=== PATIENT | female | born 1980 | race Caucasian/White ===

== ENCOUNTER 2016-12-22 12:04 | Outpatient (CLI) | payer BC, OTHER | END 2016-12-22 12:05 | disposition home or self-care (01) | DX: Z36 Encounter for antenatal screening of mother (principal) ==

== ENCOUNTER 2016-12-29 15:07 | Outpatient (CLI) | payer OTHER | END 2016-12-29 15:08 | disposition home or self-care (01) | DX: Z36 Encounter for antenatal screening of mother (principal) ==

== ENCOUNTER 2017-02-16 07:25 | Outpatient (CLI) | payer OTHER ==
--- NOTE | 2017-02-16 12:14 | Ultrasound Report ---
DETAILED ANATOMICAL EVALUATION: 02/16/2017 TECHNIQUE: Real-time scanning was performed with healthcare representative static images obtained. LAST MENSTRUAL PERIOD 09/28/2016 Clinical Age 20 weeks 1 day US Age 20 weeks 3 days EFW Hadlock 370 g EFW% Hadlock --- Heart Rate 135 bpm EDC 07/05/2017 US EDC 07/03/2017 BPD [place] 20 weeks 0 days; Mean mm 46.2 HC [place] 20 weeks 1 day; Mean mm 177.1 AC [place] 21 weeks 3 days; Mean mm 163.4 FL [place]lock 20 weeks 0 days; Mean mm 32.1 Presentation variable Placental Location posterior Cervical Length 5.7 cm Amniotic Fluid 13.8 cm FINDINGS: Single fetus is noted in variable positions within the uterus. Composite gestational age today by ultrasound is 20 weeks 3 days. EDC by ultrasound is 07/03/2017. This is 2 days more advanced than expected as calculated for patient's LMP. This degree of growth is within normal limits. weight at the present time is 370 grams. The head circumference to abdominal circumference ratio is slightly less than normal at 1.08. Suggest a followup ultrasound in 8 weeks to evaluate growth. heart rate is 135 beats per minute. anatomy shows normal head, body, spine, four-chamber view of the heart, cardiac outflow tract, umbilical cord insertion site in the fetus, and bladder. kidneys are seen. Examination is negative for hydronephrosis. Normal three-vessel umbilical cord is noted. Placenta appears normal. Umbilical cord insertion site in the placenta is within the bulk of the placenta and only mildly eccentrically located. Examination is negative for placenta previa. Umbilical cord insertion site within the placenta is within the bulk of the placenta. It is slightly eccentrically located within the placenta but within normal limits in regard to its position. Maternal cervix measures 5.7 cm. IMPRESSION: 1. SINGLE FETUS IS NOTED IN VARIABLE POSITIONS WITHIN THE UTERUS. COMPOSITE GESTATIONAL AGE BY ULTRASOUND TODAY IS 20 WEEKS 3 DAYS. EDC BY ULTRASOUND IS 07/03/2017. PRESENT GESTATIONAL AGE IS ONLY 2 DAYS MORE ADVANCED THAN EXPECTED CALCULATED FROM PATIENT'S LMP. 2. HEAD CIRCUMFERENCE/ABDOMINAL CIRCUMFERENCE RATIO IS SLIGHTLY LESS THAN NORMAL. RECOMMEND A FOLLOWUP ULTRASOUND IN 8 WEEKS FOR FURTHER EVALUATION OF GROWTH. 3. POSTERIOR PLACENTA. 4. NORMAL AMOUNT OF AMNIOTIC FLUID WITH AMNIOTIC FLUID VOLUME INDEX OF 13.8. MTDD
== END 2017-02-16 07:26 | disposition home or self-care (01) ==
LOC: DI 07:25
PROVIDERS: ATTEND Nurse Practitioner Obstetrics & Gynecology
DX: Z36 Encounter for antenatal screening of mother (principal)
CPT/HCPCS: 76811

== ENCOUNTER 2017-04-04 13:48 | Outpatient (CLI) | payer OTHER ==
--- NOTE | 2017-04-05 09:10 | Ultrasound Report ---
OB FOLLOWUP: 04/04/2017 CLINICAL INDICATION: Check growth, slight variation in HC/AC on previous examination. TECHNIQUE: Real-time scanning was performed with roofing sales representative static images obtained. LAST MENSTRUAL PERIOD 09/28/2016 Clinical Age 26 weeks 6 days US Age 28 weeks 4 days EFW Hadlock 1212 g EFW% Hadlock 73% Heart Rate 135 bpm EDC 07/05/2017 US EDC 06/23/2017 BPD [place] 29 weeks 0 days; Mean mm 72.2 HC [place] 29 weeks 0 days; Mean mm 165.9 AC [place] 28 weeks 5 days; Mean mm 245.3 FL [place] 27 weeks 3 days; Mean mm 51.1 Presentation cephalic Placental Location posterior Cervical Length 5.0 cm Amniotic Fluid 22.9 cm FINDINGS: There is a single viable intrauterine gestation, in cephalic presentation. heart rate is 135 BPM. The placenta is posterior, without evidence of previa. Amniotic fluid volume is at the upper limits of normal, measuring 22.9 (95th percentile for gestational age). By size, the fetus now measures 28.6 weeks (27.1 weeks by previous sonogram). HC/AC ratio is now within normal limits. No free fluid or adnexal lesion is appreciated. IMPRESSION: SINGLE VIABLE INTRAUTERINE GESTATION, WITH EXPECTED GROWTH FROM PREVIOUS SONOGRAM. NORMAL HC/AC RATIO. BORDERLINE POLYHYDRAMNIOS. MTDD
== END 2017-04-04 13:49 | disposition home or self-care (01) ==
LOC: DI 13:48
PROVIDERS: ATTEND Nurse Practitioner Obstetrics & Gynecology
DX: Z36 Encounter for antenatal screening of mother (principal)
CPT/HCPCS: 76816

== ENCOUNTER 2017-04-11 14:56 | Outpatient (CLI) | payer OTHER ==
[2017-04-11 18:51] LABS: HCT - HEMATOCRIT 34.8 % (37.0-47.0); HGB - HEMOGLOBIN 11.7 g/dL (12.0-16.0); MEAN CORPUSCULAR HGB CONC 33.5 g/dL (32.0-36.0); MEAN CORPUSCULAR VOLUME 92.4 fL (81.0-99.0); MEAN PLATELET VOLUME 8.9 fL (7.9-10.8); RED BLOOD COUNT 3.77 10^6/uL (4.20-5.40); RED CELL DISTRIBUTION WIDTH 13.2 % (12.0-15.0); WHITE BLOOD COUNT 16.2 x10^3/uL (4.8-10.8)
== END 2017-04-11 14:57 | disposition home or self-care (01) ==
LOC: LAB.F 14:56
PROVIDERS: ATTEND Nurse Practitioner Obstetrics & Gynecology
DX: Z36 Encounter for antenatal screening of mother (principal)
CPT/HCPCS: 82950; 85025; 86850

== ENCOUNTER 2017-06-08 08:00 | Outpatient (CLI) | payer OTHER | END 2017-06-08 08:01 | disposition home or self-care (01) | LOC: LAB.R 08:00 | PROVIDERS: ATTEND Registered Nurse | DX: Z34.83 Encounter for supervision of other normal pregnancy, third trimester (principal) | CPT/HCPCS: 87081 ==

== ENCOUNTER 2017-07-05 16:59 | Inpatient (IN) | payer OTHER ==
[~2017-07-05 16:59] MED LIST: LABETALOL 20 MG/4 ML SYRINGE IVP ONE; MAGNESIUM SULFATE 2 GM in SODIUM CHLORIDE 0.9% 50 ML IV ONE
[2017-07-05] MEDS ORDERED: MAGNESIUM SULFATE 2 GRAM 2 GM/50 ML BAG IV SCH (17:00)
--- NOTE | 2017-07-05 17:09 | HISTORY & PHYSICAL EXAMINATION ---
Admit History - Instructions [place]/Slash: -Left hand click circles element as positive or present. -Right hand click slashes element as negative or not present. - Visit Reason Visit Reason: Other (Severe hypertension @ 4days ) - : 1 Parity: 1 Premature: 0 Ectopic: 0 : 0 Care: positive: [facility] Risk/History: positive: induced HTN Complications This : positive: induced HTN, Other ( w/ 2nd degree perineal laceration s/p IOL for gHTN) Smoking Status: Never smoker - Mother's Labs Mother's Blood Type: positive: O Mother's RH: positive: Positive GBS: positive: Group B Step Negative Rubella Status: positive: Immune - Other Maternal History Other Maternal History: Flores Nicole is a 37 y/o who underwent IOL for new onset gHTN @ 39w1d. She underwent effective pharmaceutical cervical ripening w/ misoprostol , then received Pitocin infusion to maximum infusion of 9mU/min, then underwent AROM & subsequently delivered vaginally w/o complication. , she was mostly normotensive w/ occasional labile BPs 140s/80s but no severe-range blood pressures & no neurologic s/sx. She did not have proteinuria during her hospital stay. She was seen today in clinic for disorder & was found to have persistent severe-range BPs. She denied RAMON/vision changes/RUQ/ epigastric/shoulder pain. Her edema had progressed to +3. Her DTRs were brisk +3 w/o clonus. Meds/Allgy - Home Medications Home Medications: Ambulatory Orders Medication Instructions Recorded Confirmed Pnv No.122/Iron/Folic Acid 1 tab PO DAILY 06/29/17 06/29/17 [ Multi Tablet] - Allergies Allergies/Adverse Reactions: Allergies Allergy/AdvReac Type Severity Reaction Status Date / Time No Known Drug Allergies Allergy Verified 06/29/17 13:44 Physical - Other Notes Labor Progress Note/Additional Text: ROS: GEN: No fever, some fatigue secondary to sleep disruption HEENT: No RAMON, no visual disturbances CHEST: No CP, no SOB ABD: No N/V/D, occasional "twinges" of pain : + minimal lochia rubra, + tenderness @ perineal laceration MS: FROM t/o, some tenderness in thighs secondary to exertion during delivery, No calf tenderness, notable edema NEURO: No numbness/tingling/weakness SKIN: No pruritus, no lesion PSYCH: Some anxiety & stress secondary to difficulties w/ BREAST: + severe nipple pain w/ latch & t/o nursing, + shooting, sharp pains intermittently in b/l breasts PE: GEN: AAOx3, NAD [place] female HEENT: Grossly normocephalic, atraumatic CHEST: Lungs b/l CTA t/o, RRR nls1s2, no murmur ABD: S, NT, Fundus firm @ 4 fingerbreadths below U : Deferred MS: FROM t/o, no erythema, +3 pitting edema to the knee b/l NEURO: +3 b/l LE DTRs, no clonus SKIN: No lesion, C/D/I, warm PSYCH: Mild anxiety, no depressive symptoms BREAST: BL full, NT, nipples b/l intact & everted, erythematous Plan for Labor - Plan For Labor Plan for Labor: Assessment: pre-eclampsia by BP criteria Nipple infection consistent w/ mammary candidiasis Plan: 1. Reviewed implications of today's clinical findings & risks r/t untreated BP, including maternal stroke/PE/seizure 2. Readmit pt to hospital for seizure prophylaxis w/ Magnesium Sulfate: 4g bolus followed by 2g/hr infusion 3. PET labs 4. 2L fluid restriction, strict I & O 5. 20mg labetalol IVP for BP management, progressive dosing if persistent severe -range BPs 6. Fluconazole 400mg po x1, then 200mg daily thereafter x13 days 7. Extensive support provided 8. Reviewed plan of care w/ pt & partner, consulted Dr. Feliciano DO, who concurs with assessment & plan, Dr. Elvia MD, notified regarding patient status & plan of care 9. Ongoing careful blood pressure monitoring
[2017-07-05 17:22] LABS: BASOPHILS # (AUTO) 0.1 10^3/uL (0.0-0.1); BASOPHILS % (AUTO) 0.4 %; EOSINOPHILS # (AUTO) 0.3 10^3/uL (0.0-0.7); HCT - HEMATOCRIT 39.9 % (37.0-47.0); HGB - HEMOGLOBIN 13.1 g/dL (12.0-16.0); LYMPHOCYTES # (AUTO) 1.9 10^3/uL (1.5-3.5); LYMPHOCYTES % (AUTO) 12.3 %; MEAN CORPUSCULAR HEMOGLOBIN 29.9 pg (27.0-31.0); MEAN CORPUSCULAR HGB CONC 32.7 g/dL (32.0-36.0); MEAN CORPUSCULAR VOLUME 91.4 fL (81.0-99.0); MEAN PLATELET VOLUME 8.6 fL (7.9-10.8); MONOCYTES % (AUTO) 6.6 %; NEUTROPHILS # (AUTO) 12.4 10^3/uL (1.5-6.6); NEUTROPHILS % (AUTO) 78.7 %; RED BLOOD COUNT 4.36 10^6/uL (4.20-5.40); RED CELL DISTRIBUTION WIDTH 14.3 % (12.0-15.0); UNCORRECTED WHITE BLOOD COUNT 15.8 x10^3/uL; WHITE BLOOD COUNT 15.8 x10^3/uL (4.8-10.8)
[2017-07-05] MEDS ORDERED: CALCIUM GLUCONATE 1,000 MG in SODIUM CHLORIDE 0.9% 50 ML IV SCH (17:30)
[2017-07-05 17:34] LABS: URIC ACID 4.3 mg/dL (2.6-7.2)
[2017-07-05] MEDS ORDERED: FLUCONAZOLE 100 MG TABLET PO ONE (18:00)
[2017-07-05] MEDS ORDERED: LACTATED RINGERS 1,000 ML IV SCH (18:00)
[2017-07-05] MEDS ORDERED: SODIUM CHLORIDE FLUSH 0.9% 10 ML SYRINGE IVP ONE (18:29)
[2017-07-05] MEDS: METOPROLOL TARTRATE 25 MG TABLET PO SCH (20:31)
[2017-07-05] MEDS: MAGNESIUM SULFATE 2 GRAM 2 GM/50 ML BAG IV SCH ×2 (22:41→22:43)
[2017-07-05] MEDS: MAGNESIUM SULFATE 40 GM in LACTATED RINGERS 420 ML IV SCH (22:42)
--- NOTE | 2017-07-06 08:22 | PROVIDER PROGRESS NOTE ---
Subjective - Prog Note Date Prog Note Date: 07/06/17 Prog Note Time: 08:20 - Subjective Pt reports feeling: Improved Subjective: Patient sitting in bed, breast feeding baby. sitting at bedside. Pain controlled, not requiring medications. Denies visual changes, headaches, RUQ pain. Objective - Vital Signs/Intake & Output Reviewed Vital Signs: Yes Vital Signs: Vital Signs x48h Temp Pulse Resp BP 07/06/17 07:42 98.4 F 76 12 134/76 H 07/06/17 03:58 77 18 133/72 H 07/06/17 02:11 72 18 137/86 H Intake & Output: Intake & Output 07/03/17 07/04/17 07/05/17 07/06/17 23:59 23:59 23:59 23:59 Intake Total 880 Balance 880 - Objective General Appearance: positive: No acute distress Eyes Bilateral: positive: Normal inspection Abdomen: positive: Non-tender (Firm fundus) Neurologic/Psychiatric: positive: Oriented x3 Reflexes: Knee (R): 2+, Knee (L): 1+ - Lab Results Fish Bones: 07/05/17 17:15 Other Labs: Lab Results x24hrs 07/05/17 07/05/17 07/05/17 Range/Units 17:15 17:15 17:15 WBC 15.8 H (4.8-10.8) x10^3/uL RBC 4.36 (4.20-5.40) 10^6/uL Hgb 13.1 (12.0-16.0) g/dL Hct 39.9 (37.0-47.0) % MCV 91.4 (81.0-99.0) fL MCH 29.9 (27.0-31.0) pg MCHC 32.7 (32.0-36.0) g/dL RDW 14.3 (12.0-15.0) % Plt Count 277 (130-450) 10^3/uL MPV 8.6 (7.9-10.8) fL Neut # 12.4 H (1.5-6.6) 10^3/uL Lymph # 1.9 (1.5-3.5) 10^3/uL [place] # 1.0 (0.0-1.0) 10^3/uL Eos # 0.3 (0.0-0.7) 10^3/uL Baso # 0.1 (0.0-0.1) 10^3/uL Absolute Nucleated RBC 0.01 x10^3/uL Nucleated RBC % 0.0 /100WBC Uric Acid 4.3 (2.6-7.2) mg/dL AST 101 H (10-42) IU/L Lactate Dehydrogenase 251 H (91-225) IU/L Urine Creatinine mg/dL Ur Total Protein Timed mg/dL Protein/Creatinin Ratio (<=0.2) 07/05/17 Range/Units 17:10 WBC (4.8-10.8) x10^3/uL RBC (4.20-5.40) 10^6/uL Hgb (12.0-16.0) g/dL Hct (37.0-47.0) % MCV (81.0-99.0) fL MCH (27.0-31.0) pg MCHC (32.0-36.0) g/dL RDW (12.0-15.0) % Plt Count (130-450) 10^3/uL MPV (7.9-10.8) fL Neut # (1.5-6.6) 10^3/uL Lymph # (1.5-3.5) 10^3/uL [place] # (0.0-1.0) 10^3/uL Eos # (0.0-0.7) 10^3/uL Baso # (0.0-0.1) 10^3/uL Absolute Nucleated RBC x10^3/uL Nucleated RBC % /100WBC Uric Acid (2.6-7.2) mg/dL AST (10-42) IU/L Lactate Dehydrogenase (91-225) IU/L Urine Creatinine 99.0 mg/dL Ur Total Protein Timed 24 mg/dL Protein/Creatinin Ratio 0.2 (<=0.2) Assessment/Plan - Problem List (1) HELLP syndrome, complicating the puerperium Impression: 37 yo S/p 07/01/2017 at 39w3d. Induced for gestational HTN. PPD #5. HELLP due to elevated liver enzymes. Improved control of BP on routine metoprolol with PRN labetalol. D/w the patient the significance of HELLP. Though cure is delivery, still potential for seizures. Will place the patient on magnesium sulfate for 24 hours given severe pre-eclampsia. Patient and understood risks, benefits and expectations of MgSO4. Agrees to the plan. Will start MgSO4 for 24 hours with fluid restriction. Repeat labs today and tomorrow.
[2017-07-06] MEDS ORDERED: MAGNESIUM SULFATE 2 GRAM 4 GM/100 ML BAG IV ONE (08:32)
[2017-07-06] MEDS ORDERED: DOCUSATE SODIUM 250 MG CAPSULE PO SCH (09:00)
[2017-07-06] MEDS: MAGNESIUM SULFATE 40 GM in LACTATED RINGERS 420 ML IV SCH (09:34)
[2017-07-06] MEDS: LACTATED RINGERS 1,000 ML IV SCH (09:35)
[2017-07-06 09:37] LABS: BILIRUBIN,URINE NEGATIVE (NEGATIVE)
[2017-07-06 09:40] LABS: BASOPHILS # (AUTO) 0.1 10^3/uL (0.0-0.1); BASOPHILS % (AUTO) 0.4 %; EOSINOPHILS # (AUTO) 0.3 10^3/uL (0.0-0.7); HCT - HEMATOCRIT 37.8 % (37.0-47.0); HGB - HEMOGLOBIN 12.5 g/dL (12.0-16.0); LYMPHOCYTES # (AUTO) 1.5 10^3/uL (1.5-3.5); LYMPHOCYTES % (AUTO) 11.4 %; MEAN CORPUSCULAR HGB CONC 33.1 g/dL (32.0-36.0); MEAN CORPUSCULAR VOLUME 90.5 fL (81.0-99.0); MEAN PLATELET VOLUME 8.5 fL (7.9-10.8); MONOCYTES # (AUTO) 0.6 10^3/uL (0.0-1.0); MONOCYTES % (AUTO) 4.3 %; NEUTROPHILS # (AUTO) 11.1 10^3/uL (1.5-6.6); NEUTROPHILS % (AUTO) 81.9 %; RED BLOOD COUNT 4.17 10^6/uL (4.20-5.40); RED CELL DISTRIBUTION WIDTH 14.6 % (12.0-15.0); UNCORRECTED WHITE BLOOD COUNT 13.6 x10^3/uL; WHITE BLOOD COUNT 13.6 x10^3/uL (4.8-10.8)
[2017-07-06 09:49] LABS: CREATININE 0.7 mg/dL (0.4-1.0)
[2017-07-06] MEDS: METOPROLOL TARTRATE 25 MG TABLET PO SCH ×2 (10:19→20:05)
[2017-07-06] MEDS: PRENATAL VITAMIN TABLET PO SCH (10:20)
[2017-07-06] MEDS: FLUCONAZOLE 100 MG TABLET PO SCH (10:20)
[2017-07-06] MEDS: MAGNESIUM SULFATE 2 GRAM 2 GM/50 ML BAG IV SCH ×2 (10:27→10:28)
[2017-07-06] MEDS: ACETAMINOPHEN 500 MG TABLET PO PRN (11:28)
[2017-07-06] MEDS: IBUPROFEN 800 MG TABLET PO PRN (11:29)
--- NOTE | 2017-07-06 12:46 | PROVIDER PROGRESS NOTE ---
Subjective - Prog Note Date Prog Note Date: 07/06/17 Prog Note Time: 12:43 - Subjective Pt reports feeling: Improved Subjective: Sitting in bed, visiting with mom. Baby laying in bed beside her. States MgSO4 note too bad. Was greatful that she was forewarned about symptoms from MgSO4. Objective - Vital Signs/Intake & Output Reviewed Vital Signs: Yes Vital Signs: Vital Signs x48h Temp Pulse Resp BP BP 07/06/17 10:19 135/82 H 07/06/17 10:01 97 16 130/82 H 07/06/17 09:54 105 H 16 142/86 H 07/06/17 09:45 99 16 140/80 H 07/06/17 07:42 98.4 F 76 12 134/76 H Intake & Output: Intake & Output 07/03/17 07/04/17 07/05/17 07/06/17 23:59 23:59 23:59 23:59 Intake Total 880 525 Output Total 800 Balance 880 -275 - Objective General Appearance: positive: No acute distress Abdomen: positive: Non-tender Extremities: positive: Non-tender Neurologic/Psychiatric: positive: Oriented x3 - Lab Results Fish Bones: 07/06/17 09:24 07/06/17 09:24 Other Labs: Lab Results x24hrs 07/06/17 07/06/17 07/06/17 Range/Units 09:25 09:25 09:24 WBC (4.8-10.8) x10^3/uL RBC (4.20-5.40) 10^6/uL Hgb (12.0-16.0) g/dL Hct (37.0-47.0) % MCV (81.0-99.0) fL MCH (27.0-31.0) pg MCHC (32.0-36.0) g/dL RDW (12.0-15.0) % Plt Count (130-450) 10^3/uL MPV (7.9-10.8) fL Neut # (1.5-6.6) 10^3/uL Lymph # (1.5-3.5) 10^3/uL [place] # (0.0-1.0) 10^3/uL Eos # (0.0-0.7) 10^3/uL Baso # (0.0-0.1) 10^3/uL Absolute Nucleated RBC x10^3/uL Nucleated RBC % /100WBC Creatinine 0.7 (0.4-1.0) mg/dL Estimated GFR (MDRD) 95 (>89) Uric Acid (2.6-7.2) mg/dL AST 78 H (10-42) IU/L Lactate Dehydrogenase (91-225) IU/L Urine Color YELLOW Urine Clarity HAZY (CLEAR) Urine pH 6.0 (5.0-7.5) PH Ur Specific [place] 1.020 (1.002-1.030) Urine Protein NEGATIVE (NEGATIVE) mg/dL Urine Glucose (UA) NEGATIVE (NEGATIVE) mg/dL Urine Ketones NEGATIVE (NEGATIVE) mg/dL Urine Occult Blood LARGE H (NEGATIVE) Urine Nitrite NEGATIVE (NEGATIVE) Urine Bilirubin NEGATIVE (NEGATIVE) Urine Urobilinogen 0.2 (NORMAL) (NORMAL) E.U./dL Ur Leukocyte Esterase TRACE H (NEGATIVE) Urine RBC TNTC H (0-5) /HPF Urine WBC 6-10 H (0-5) /HPF Ur Squamous Epith Cells FEW Squamous (<= Few) Urine Bacteria Moderate H (None Seen) /HPF Urine Creatinine 106.6 mg/dL Ur Total Protein Timed 20 mg/dL Protein/Creatinin Ratio 0.2 (<=0.2) 07/06/17 07/05/17 07/05/17 Range/Units 09:24 17:15 17:15 WBC 13.6 H 15.8 H (4.8-10.8) x10^3/uL RBC 4.17 L 4.36 (4.20-5.40) 10^6/uL Hgb 12.5 13.1 (12.0-16.0) g/dL Hct 37.8 39.9 (37.0-47.0) % MCV 90.5 91.4 (81.0-99.0) fL MCH 30.0 29.9 (27.0-31.0) pg MCHC 33.1 32.7 (32.0-36.0) g/dL RDW 14.6 14.3 (12.0-15.0) % Plt Count 264 277 (130-450) 10^3/uL MPV 8.5 8.6 (7.9-10.8) fL Neut # 11.1 H 12.4 H (1.5-6.6) 10^3/uL Lymph # 1.5 1.9 (1.5-3.5) 10^3/uL [place] # 0.6 1.0 (0.0-1.0) 10^3/uL Eos # 0.3 0.3 (0.0-0.7) 10^3/uL Baso # 0.1 0.1 (0.0-0.1) 10^3/uL Absolute Nucleated RBC 0.00 0.01 x10^3/uL Nucleated RBC % 0.0 0.0 /100WBC Creatinine (0.4-1.0) mg/dL Estimated GFR (MDRD) (>89) Uric Acid 4.3 (2.6-7.2) mg/dL AST 101 H (10-42) IU/L Lactate Dehydrogenase (91-225) IU/L Urine Color Urine Clarity (CLEAR) Urine pH (5.0-7.5) PH Ur Specific [place] (1.002-1.030) Urine Protein (NEGATIVE) mg/dL Urine Glucose (UA) (NEGATIVE) mg/dL Urine Ketones (NEGATIVE) mg/dL Urine Occult Blood (NEGATIVE) Urine Nitrite (NEGATIVE) Urine Bilirubin (NEGATIVE) Urine Urobilinogen (NORMAL) E.U./dL Ur Leukocyte Esterase (NEGATIVE) Urine RBC (0-5) /HPF Urine WBC (0-5) /HPF Ur Squamous Epith Cells (<= Few) Urine Bacteria (None Seen) /HPF Urine Creatinine mg/dL Ur Total Protein Timed mg/dL Protein/Creatinin Ratio (<=0.2) 07/05/17 07/05/17 Range/Units 17:15 17:10 WBC (4.8-10.8) x10^3/uL RBC (4.20-5.40) 10^6/uL Hgb (12.0-16.0) g/dL Hct (37.0-47.0) % MCV (81.0-99.0) fL MCH (27.0-31.0) pg MCHC (32.0-36.0) g/dL RDW (12.0-15.0) % Plt Count (130-450) 10^3/uL MPV (7.9-10.8) fL Neut # (1.5-6.6) 10^3/uL Lymph # (1.5-3.5) 10^3/uL [place] # (0.0-1.0) 10^3/uL Eos # (0.0-0.7) 10^3/uL Baso # (0.0-0.1) 10^3/uL Absolute Nucleated RBC x10^3/uL Nucleated RBC % /100WBC Creatinine (0.4-1.0) mg/dL Estimated GFR (MDRD) (>89) Uric Acid (2.6-7.2) mg/dL AST (10-42) IU/L Lactate Dehydrogenase 251 H (91-225) IU/L Urine Color Urine Clarity (CLEAR) Urine pH (5.0-7.5) PH Ur Specific [place] (1.002-1.030) Urine Protein (NEGATIVE) mg/dL Urine Glucose (UA) (NEGATIVE) mg/dL Urine Ketones (NEGATIVE) mg/dL Urine Occult Blood (NEGATIVE) Urine Nitrite (NEGATIVE) Urine Bilirubin (NEGATIVE) Urine Urobilinogen (NORMAL) E.U./dL Ur Leukocyte Esterase (NEGATIVE) Urine RBC (0-5) /HPF Urine WBC (0-5) /HPF Ur Squamous Epith Cells (<= Few) Urine Bacteria (None Seen) /HPF Urine Creatinine 99.0 mg/dL Ur Total Protein Timed 24 mg/dL Protein/Creatinin Ratio 0.2 (<=0.2) Assessment/Plan - Problem List (1) HELLP syndrome, complicating the puerperium Impression: 37 yo with improving HELLP. AST decreased from yesterday. Continue MgSO4 x 24 hours. Repeat labs tomorrow AM. Anticipate discharge to home tomorrow with Rx antihypertensives. Will need to recheck BP in the office mid-week.
[2017-07-06] MEDS: DOCUSATE SODIUM 100 MG CAPSULE PO SCH (20:05)
[2017-07-07] MEDS: ACETAMINOPHEN 500 MG TABLET PO PRN ×2 (00:18→07:14)
[2017-07-07] MEDS: IBUPROFEN 800 MG TABLET PO PRN (00:19)
[2017-07-07] MEDS: MAGNESIUM SULFATE 40 GM in LACTATED RINGERS 420 ML IV SCH (03:33)
[2017-07-07] MEDS ORDERED: MAGNESIUM SULFATE 2 GRAM 0 GM/0 ML BAG IV ONE (03:34)
[2017-07-07] MEDS: LACTATED RINGERS 1,000 ML IV SCH (07:08)
[2017-07-07] MEDS: PRENATAL VITAMIN TABLET PO SCH (07:14)
[2017-07-07] MEDS: DOCUSATE SODIUM 100 MG CAPSULE PO SCH (07:15)
[2017-07-07] MEDS ORDERED: METOPROLOL TARTRATE 50 MG TABLET PO SCH (08:58)
[2017-07-07 09:19] LABS: BASOPHILS # (AUTO) 0.1 10^3/uL (0.0-0.1); BASOPHILS % (AUTO) 0.7 %; EOSINOPHILS # (AUTO) 0.3 10^3/uL (0.0-0.7); EOSINOPHILS % (AUTO) 2.4 %; HCT - HEMATOCRIT 37.8 % (37.0-47.0); HGB - HEMOGLOBIN 12.7 g/dL (12.0-16.0); LYMPHOCYTES # (AUTO) 1.5 10^3/uL (1.5-3.5); LYMPHOCYTES % (AUTO) 12.9 %; MEAN CORPUSCULAR HEMOGLOBIN 30.1 pg (27.0-31.0); MEAN CORPUSCULAR HGB CONC 33.6 g/dL (32.0-36.0); MEAN CORPUSCULAR VOLUME 89.5 fL (81.0-99.0); MONOCYTES # (AUTO) 0.6 10^3/uL (0.0-1.0); MONOCYTES % (AUTO) 5.2 %; NEUTROPHILS # (AUTO) 9.3 10^3/uL (1.5-6.6); NEUTROPHILS % (AUTO) 78.8 %; RED BLOOD COUNT 4.23 10^6/uL (4.20-5.40); RED CELL DISTRIBUTION WIDTH 14.2 % (12.0-15.0); UNCORRECTED WHITE BLOOD COUNT 11.9 x10^3/uL; WHITE BLOOD COUNT 11.9 x10^3/uL (4.8-10.8)
[2017-07-07 09:29] LABS: CREATININE 0.6 mg/dL (0.4-1.0)
[2017-07-07] MEDS: FLUCONAZOLE 100 MG TABLET PO SCH (10:03)
--- NOTE | 2017-07-07 10:57 | PROVIDER PROGRESS NOTE ---
Subjective - Prog Note Date Prog Note Date: 07/07/17 Prog Note Time: 10:54 - Subjective Pt reports feeling: Improved Subjective: Patient sitting in bed, hungrily eating her pancakes. Did not like MgSO4. changing baby. Denies S/s pre-eclampsia (eg RAMON, visual changes, RUQ pain ). Desires to go home. Pain only with . Not taking meds. Minimal lochia. well. Objective - Vital Signs/Intake & Output Reviewed Vital Signs: Yes Vital Signs: Vital Signs x48h Temp Pulse Resp BP BP Pulse Ox 07/07/17 10:02 146/96 H 07/07/17 07:22 97.5 F L 84 24 146/96 H 96 Intake & Output: Intake & Output 07/04/17 07/05/17 07/06/17 07/07/17 23:59 23:59 23:59 23:59 Intake Total 880 1185 1689.583 Output Total 3400 2250 Balance 880 -2215 -560.417 - Objective General Appearance: positive: No acute distress Eyes Bilateral: positive: Normal inspection Abdomen: positive: Non-tender Extremities: positive: Non-tender Neurologic/Psychiatric: positive: Oriented x3 - Lab Results Fish Bones: 07/07/17 09:09 07/07/17 09:09 Other Labs: Lab Results x24hrs 07/07/17 07/07/17 07/07/17 Range/Units 09:09 09:09 09:09 WBC (4.8-10.8) x10^3/uL RBC (4.20-5.40) 10^6/uL Hgb (12.0-16.0) g/dL Hct (37.0-47.0) % MCV (81.0-99.0) fL MCH (27.0-31.0) pg MCHC (32.0-36.0) g/dL RDW (12.0-15.0) % Plt Count (130-450) 10^3/uL MPV (7.9-10.8) fL Neut # (1.5-6.6) 10^3/uL Lymph # (1.5-3.5) 10^3/uL [place] # (0.0-1.0) 10^3/uL Eos # (0.0-0.7) 10^3/uL Baso # (0.0-0.1) 10^3/uL Absolute Nucleated RBC x10^3/uL Nucleated RBC % /100WBC Creatinine 0.6 (0.4-1.0) mg/dL Estimated GFR (MDRD) 113 (>89) Magnesium (1.7-2.8) mg/dL AST 53 H (10-42) IU/L Lactate Dehydrogenase 249 H (91-225) IU/L 07/07/17 07/06/17 07/06/17 Range/Units 09:09 21:30 15:04 WBC 11.9 H (4.8-10.8) x10^3/uL RBC 4.23 (4.20-5.40) 10^6/uL Hgb 12.7 (12.0-16.0) g/dL Hct 37.8 (37.0-47.0) % MCV 89.5 (81.0-99.0) fL MCH 30.1 (27.0-31.0) pg MCHC 33.6 (32.0-36.0) g/dL RDW 14.2 (12.0-15.0) % Plt Count 282 (130-450) 10^3/uL MPV 8.0 (7.9-10.8) fL Neut # 9.3 H (1.5-6.6) 10^3/uL Lymph # 1.5 (1.5-3.5) 10^3/uL [place] # 0.6 (0.0-1.0) 10^3/uL Eos # 0.3 (0.0-0.7) 10^3/uL Baso # 0.1 (0.0-0.1) 10^3/uL Absolute Nucleated RBC 0.00 x10^3/uL Nucleated RBC % 0.0 /100WBC Creatinine (0.4-1.0) mg/dL Estimated GFR (MDRD) (>89) Magnesium 6.0 H* 5.4 H* (1.7-2.8) mg/dL AST (10-42) IU/L Lactate Dehydrogenase (91-225) IU/L Assessment/Plan - Problem List (1) HELLP syndrome, complicating the puerperium Impression: 37 yo S/p 07/01/2017, PPD #6. Improving HELLP with decreased AST and creatinine. Elevation of DBP. Will increase metoprolol from 25 mg BID to 50 mg BID. Stop MgSO4. Will observe the patient to make sure MgSO4 has cleared her body. Also make sure metoprolol 50 mg BID gives satisfactory control of DBP. Hopefully, discharge to home at 4 or 5 PM today. Rx for metoprolol 50 mg BID sent to [facility] in [place] as well as Rx for BP monitor. Patient to continue Rx diflucan for candidal mastitis. Patient to follow up on 07/10/2017. Call for worsening headaches, visual changes, RUQ tenderness, nausea, vomiting, fevers, abdominal pain. Discharge Plan Disposition: Home, Self Care Condition: Good Diet: Regular Activity Restrictions: Activity as Tolerated Shower Restrictions: No Driving Restrictions: Yes (No driving for more than 30 minutes) Weight Bearing: Full Weight No Smoking: If you smoke, Please STOP! Call for help. Follow-up with: Flores Wiggins DO [Provider Admit Priv/Credential] -
[2017-07-07 15:56] VITALS: BP 124/74
[2017-07-07] MEDS ORDERED: FLUCONAZOLE 100 MG TABLET PO ONE (16:00)
== END 2017-07-07 17:00 | disposition home or self-care (01) | DRG 776 ==
LOC: WFO 16:59 → FBP 17:01
PROVIDERS: ADMIT Registered Nurse; ATTEND Obstetrics & Gynecology
DX: O14.25 HELLP syndrome, complicating the puerperium (principal); O98.83 Other maternal infectious and parasitic diseases complicating the puerperium; N61.0 Mastitis without abscess; B37.2 Candidiasis of skin and nail
CPT/HCPCS: 36415; 81001; 82565; 82570; 83615; 83735; 84156; 84450; 84550; 85025

== ENCOUNTER 2021-05-11 08:02 | Outpatient (CLI) | payer BC, OTHER ==
[2021-05-11 15:09] LABS: BASOPHILS # (AUTO) 0.1 10^3/uL (0.0-0.1); BASOPHILS % (AUTO) 1.1 %; EOSINOPHILS # (AUTO) 0.1 10^3/uL (0.0-0.7); EOSINOPHILS % (AUTO) 1.4 %; HCT - HEMATOCRIT 39.6 % (37.0-47.0); HGB - HEMOGLOBIN 12.4 g/dL (12.0-16.0); LYMPHOCYTES # (AUTO) 1.5 10^3/uL (1.5-3.5); LYMPHOCYTES % (AUTO) 26.4 %; MEAN CORPUSCULAR HEMOGLOBIN 29.2 pg (27.0-31.0); MEAN CORPUSCULAR HGB CONC 31.3 g/dL (32.0-36.0); MEAN CORPUSCULAR VOLUME 93.4 fL (81.0-99.0); MEAN PLATELET VOLUME 11.4 fL (7.9-10.8); MONOCYTES # (AUTO) 0.4 10^3/uL (0.0-1.0); MONOCYTES % (AUTO) 7.7 %; NEUTROPHILS # (AUTO) 3.6 10^3/uL (1.5-6.6); NEUTROPHILS % (AUTO) 63.2 %; PLT - PLATELET COUNT 285 10^3/uL (130-450); RED BLOOD COUNT 4.24 10^6/uL (4.20-5.40); RED CELL DISTRIBUTION WIDTH 12.4 % (12.0-15.0); WHITE BLOOD COUNT 5.7 x10^3/uL (4.8-10.8)
[2021-05-11 15:29] LABS: ALBUMIN 4.2 g/dL (3.2-5.5); ALBUMIN/GLOBULIN RATIO 1.2 (1.0-2.2); ALKALINE PHOSPHATASE 43 IU/L (42-121); ALT ALANINE AMINOTRANSFERASE 16 IU/L (10-60); AST ASPARTATE AMINOTRANSFERASE 14 IU/L (10-42); BILIRUBIN,TOTAL 2.5 mg/dL (0.2-1.0); BUN - BLOOD UREA NITROGEN 14 mg/dL (6-20); CALCIUM 8.7 mg/dL (8.5-10.3); CARBON DIOXIDE - CO2 27 mmol/L (21-32); CHLORIDE 103 mmol/L (101-111); CHOL/HDL RATIO 2.6 (<4.4); CHOLESTEROL 137 mg/dL; CREATININE 0.6 mg/dL (0.4-1.0); GFR - MDRD 111 (>89); GLUCOSE 98 mg/dL (70-100); HDL CHOLESTEROL 52 mg/dL; LDL CHOLESTEROL,CALCULATED 75 mg/dL; LDL/HDL RATIO 1.4 (<4.4); POTASSIUM 3.9 mmol/L (3.5-5.0); SODIUM 137 mmol/L (135-145); TOTAL PROTEIN 7.7 g/dL (6.7-8.2); TRIGLYCERIDES 52 mg/dL; VLDL CHOLESTEROL 10 mg/dL
--- NOTE | 2021-05-11 16:35 | XRAY Report ---
PROCEDURE: Cervical Spine 2 View INDICATIONS: NECK PAIN TECHNIQUE: 3 view(s) of the cervical spine were acquired. COMPARISON: None. FINDINGS: Bones: No fractures or dislocations to the C7-T1 level. The lateral masses of C1 appear intact on t he odontoid view. No suspicious bony lesions. There is reversal of cervical curvature. There is tra ce retrolisthesis of C5 on C6, C6 on C7. Minimal to mild disc space narrowing is present at C5-6 with small anterior osteophytes. Mild multilevel uncovertebral hypertrophy is present. Soft tissues: No prevertebral soft tissue swelling. IMPRESSION: Reversal cervical curvature with changes of disc space narrowing and uncovertebral hyper trophy. MRI is recommended for further evaluation of potential foraminal narrowing as indicated. Reviewed by: Alice Mendoza MD on 05/11/2021 4:34 PM PDT Approved by: Alice Mendoza MD on 05/11/2021 4:34 PM PDT Station ID: [id number]
== END 2021-05-11 08:03 | disposition home or self-care (01) ==
LOC: DI.S 08:02
PROVIDERS: ATTEND Physician Assistant
DX: Z00.00 Encounter for general adult medical examination without abnormal findings (principal); M89.38 Hypertrophy of bone, other site; Z13.1 Encounter for screening for diabetes mellitus; Z13.220 Encounter for screening for lipoid disorders; M43.12 Spondylolisthesis, cervical region
CPT/HCPCS: 36415; 80053; 80061; 83721; 85025

== ENCOUNTER 2021-05-20 13:49 | Outpatient (CLI) | payer BC | END 2021-05-20 13:50 | disposition home or self-care (01) | LOC: COV 13:49 | PROVIDERS: ATTEND Family Medicine | DX: M79.10 Myalgia, unspecified site (principal); R53.83 Other fatigue; Z20.822 Contact with and (suspected) exposure to COVID-19 ==

== ENCOUNTER 2022-03-13 15:59 | Outpatient (CLI) | payer BC ==
--- NOTE | 2022-03-21 08:47 | Mammography Report ---
BILATERAL DIGITAL SCREENING MAMMOGRAM 3D/2D WITH EXAGGERATED CC: 03/13/2022 CLINICAL: Routine screening. Family history of breast cancer. No prior exams were available for comparison. The tissue of both breasts is extremely dense, which l owers the sensitivity of mammography. No significant masses, calcifications, or other findings are seen in either breast. IMPRESSION: NEGATIVE There is no mammographic evidence of malignancy. A 1 year screening mammogram is recommended. Based on Tyrer-Cuzick model (a risk assessment model), the patient's lifetime risk is 30.1% and her 1 0 year risk is 4.5%. If a patient has an elevated risk, a more comprehensive evaluation should be con sidered and/or a referral to a genetic counselor. The [place] [employer], [employer], and NCCN Guidelines advise the consideration of Breast MRI as an adjunct to screening mammog helena in patients whose "Lifetime risk to develop breast cancer" is 20% or higher. This exam was interpreted at Station ID: [id number]. NOTE: For mammograms, a report in lay terms will be sent to the patient. Approximately 15% of breast malignancies will not be visualized mammographically. In the management of a palpable breast mass, a negative mammogram must not discourage biopsy of a clinically suspicious lesion. Electronically Signed By: Josh salgado/[email or web address]:03/20/2022 15:21:33 ACR BI-RADS Category 1: Negative [id number] PARENCHYMAL PATTERN: (VD) - The breast(s) demonstrate(s) extremely dense parenchyma, limiting the sen sitivity of mammography. BI-RADS CATEGORY: (1) - 1 RECOMMENDATION: (ANNUAL) - Recommend routine annual screening mammography. [id number] 1 year screening LATERALITY: (B)
== END 2022-03-13 16:00 | disposition home or self-care (01) ==
LOC: DI.S 15:59
DX: Z13.1 Encounter for screening for diabetes mellitus (principal); Z80.3 Family history of malignant neoplasm of breast